=== PATIENT | female | born 2005 | race Two or more races ===

== ENCOUNTER 2025-04-27 13:08 | Emergency (ER) | payer MEDICAID ==
[~2025-04-27] VITALS: Ht 167.6 cm; Wt 77.3 kg
[2025-04-27 13:28] VITALS: BP 107/72; PULSE 76; RESP 18; TEMP 98.6; O2SAT 100
[2025-04-27] MEDS: IBUPROFEN 600 MG TABLET PO ONE (15:23)
[2025-04-27] MEDS ORDERED: IBUP-1492 PO (15:24)
[2025-04-27] MEDS ORDERED: ACET-2247 PO (15:24)
[2025-04-27] MEDS: ACETAMINOPHEN 500 MG TABLET PO ONE (15:24)
== END 2025-04-27 16:28 | disposition home or self-care (01) ==
LOC: EMS 13:08
DX: M25.532 Pain in left wrist (principal)
CPT/HCPCS: 99284; 73110-TC; 73130-TC; Z7502; Z7610